=== PATIENT | female | born 1960 | race Caucasian/White ===

== ENCOUNTER 2017-03-04 18:28 | Emergency (ER) | payer BC, OTHER ==
[~2017-03-04] VITALS: Ht 165.1 cm; Wt 100.4 kg
[2017-03-04 18:29] VITALS: BP 122/80
== END 2017-03-04 18:38 | disposition home or self-care (01) ==
LOC: ED 18:32
DX: J03.00 Acute streptococcal tonsillitis, unspecified (principal)
CPT/HCPCS: 99283

== ENCOUNTER 2017-03-06 08:48 | Inpatient (IN) | payer BC ==
[~2017-03-06] VITALS: Ht 165.1 cm; Wt 109.8 kg
[2017-03-06] MEDS ORDERED: DEXAMETHASONE 4 MG/ML, 5ML ONE (09:21)
[2017-03-06] MEDS ORDERED: DEXAMETHASONE 4 MG/ML, 1ML PO ONE (09:30)
[2017-03-06] MEDS ORDERED: CEFTRIAXONE PMX 1GM/50ML 50 ML IV ONE (10:00)
[2017-03-06] MEDS ORDERED: BENZOCAINE 20% SPRAY 0.5ML ONE (10:01)
[2017-03-06] MEDS ORDERED: CEFTRIAXONE PMX 1GM/50ML 50 ML ONE (10:13)
[2017-03-06 10:20] LABS: HEMOGLOBIN 12.6 g/dL (11.7-16.4)
[2017-03-06 10:29] LABS: BLOOD UREA NITROGEN 13 mg/dL (7-18)
[2017-03-06] MEDS ORDERED: SODIUM CHLORIDE 0.9% 1,000ML IVBOLUS ONE (10:30)
[2017-03-06 10:31] LABS: ASPARTATE AMINO TRANSFERASE 15 U/L (15-37)
[2017-03-06] MEDS ORDERED: SODIUM CHLORIDE 0.9% 1,000 ML IV ONE (10:52)
[2017-03-06] MEDS ORDERED: POLYETHYLENE GLYCOL 17 GM PACKET PO PRN (11:00)
[2017-03-06] MEDS ORDERED: ONDANSETRON 2MG/ML, 2ML IVP PRN (11:00)
[2017-03-06] MEDS ORDERED: TEMAZEPAM 15 MG CAPSULE PO PRN (11:00)
[2017-03-06] MEDS ORDERED: LABETALOL 5MG/ML, 20ML IV PRN (11:00)
[2017-03-06] MEDS ORDERED: ACETAMINOPHEN 325 MG TABLET PO PRN (11:00)
[2017-03-06] MEDS ORDERED: MORPHINE SULFATE 4 MG/ML, 1ML ONE ×2 (11:09→13:00)
[2017-03-06] MEDS ORDERED: ENOXAPARIN 40 MG/0.4 ML ONE (11:10)
[2017-03-06] MEDS: ENOXAPARIN 40 MG/0.4 ML SQ SCH (11:12)
[2017-03-06] MEDS: MORPHINE SULFATE 4 MG/ML, 1ML IVPush PRN ×5 (11:12→23:22)
[2017-03-06] MEDS: AMPICILLIN/SULBACTAM 3 GM in SODIUM CHLORIDE 0.9% 100 ML IV SCH ×3 (11:30→22:50)
[2017-03-06] MEDS ORDERED: SODIUM CHLORIDE FLUSH 10ML SYR IVF ONE (12:00)
[2017-03-06] MEDS: DEXAMETHASONE 4 MG/ML, 1ML IVPush SCH ×3 (12:01→22:50)
[2017-03-06] MEDS: SODIUM CHLORIDE 0.9% 1,000 ML IV SCH (14:15)
[2017-03-06 16:48] VITALS: BP 145/85
[2017-03-06] MEDS: SODIUM CHLORIDE FLUSH 10ML SYR IVF SCH (20:28)
[2017-03-06] MEDS ORDERED: OMNIPAQUE 350 MG/ML, 100ML BOTTLE ONE (22:17)
[2017-03-07 03:00] VITALS: BP 140/74
[2017-03-07] MEDS: SODIUM CHLORIDE 0.9% 1,000 ML IV SCH ×3 (03:49→18:27)
[2017-03-07] MEDS: MORPHINE SULFATE 4 MG/ML, 1ML IVPush PRN (03:49)
[2017-03-07 04:27] LABS: HEMOGLOBIN 10.9 g/dL (11.7-16.4)
[2017-03-07 04:38] LABS: BLOOD UREA NITROGEN 18 mg/dL (7-18)
[2017-03-07 04:39] LABS: ASPARTATE AMINO TRANSFERASE 10 U/L (15-37)
[2017-03-07] MEDS: DEXAMETHASONE 4 MG/ML, 1ML IVPush SCH ×3 (05:06→19:27)
[2017-03-07] MEDS: AMPICILLIN/SULBACTAM 3 GM in SODIUM CHLORIDE 0.9% 100 ML IV SCH ×3 (05:07→19:27)
[2017-03-07] MEDS: PANTOPROZOLE 40MG TABLET PO SCH (08:29)
[2017-03-07] MEDS: OXYcodone IR 5MG TABLET PO PRN ×4 (08:29→21:16)
[2017-03-07] MEDS: ENOXAPARIN 40 MG/0.4 ML SQ SCH (08:41)
[2017-03-07] MEDS: SODIUM CHLORIDE FLUSH 10ML SYR IVF SCH ×2 (13:05→21:16)
[2017-03-07 13:11] VITALS: BP 130/77
[2017-03-07] MEDS: DOCUSATE 100 MG CAPSULE PO PRN (17:23)
[2017-03-07 20:40] VITALS: BP 120/77
[2017-03-08 00:54] VITALS: BP 143/83
[2017-03-08] MEDS: AMPICILLIN/SULBACTAM 3 GM in SODIUM CHLORIDE 0.9% 100 ML IV SCH ×4 (01:04→19:40)
[2017-03-08] MEDS: DEXAMETHASONE 4 MG/ML, 1ML IVPush SCH ×2 (01:04→06:27)
[2017-03-08 05:39] VITALS: BP 149/85
[2017-03-08] MEDS: OXYcodone IR 5MG TABLET PO PRN ×4 (05:48→21:35)
[2017-03-08] MEDS: SODIUM CHLORIDE 0.9% 1,000 ML IV SCH (05:48)
[2017-03-08 07:37] VITALS: BP 149/83
[2017-03-08] MEDS: SODIUM CHLORIDE FLUSH 10ML SYR IVF SCH ×2 (09:11→21:00)
[2017-03-08] MEDS: PANTOPROZOLE 40MG TABLET PO SCH (09:11)
[2017-03-08] MEDS: ENOXAPARIN 40 MG/0.4 ML SQ SCH (09:11)
[2017-03-08] MEDS: DOCUSATE 100 MG CAPSULE PO PRN (11:00)
[2017-03-08 14:48] VITALS: BP 121/76
[2017-03-08 19:03] VITALS: BP 142/85
[2017-03-09] MEDS: AMPICILLIN/SULBACTAM 3 GM in SODIUM CHLORIDE 0.9% 100 ML IV SCH ×4 (00:56→20:59)
[2017-03-09 01:14] VITALS: BP 143/83
[2017-03-09 08:18] VITALS: BP 155/88
[2017-03-09] MEDS: SODIUM CHLORIDE FLUSH 10ML SYR IVF SCH ×2 (09:09→21:00)
[2017-03-09] MEDS: OXYcodone IR 5MG TABLET PO PRN ×2 (09:10→20:59)
[2017-03-09] MEDS: ENOXAPARIN 40 MG/0.4 ML SQ SCH (12:13)
[2017-03-09] MEDS ORDERED: AMOX1TAB61 PO (13:02)
[2017-03-09] MEDS ORDERED: ACID1TAB3 PO (13:02)
[2017-03-09 14:05] VITALS: BP 134/85
[2017-03-09 19:18] VITALS: BP 134/84
[2017-03-10 03:11] VITALS: BP 155/91
[2017-03-10] MEDS: AMPICILLIN/SULBACTAM 3 GM in SODIUM CHLORIDE 0.9% 100 ML IV SCH ×3 (03:13→15:40)
[2017-03-10 07:17] VITALS: BP 160/89
[2017-03-10] MEDS: OXYcodone IR 5MG TABLET PO PRN (09:28)
[2017-03-10] MEDS: SODIUM CHLORIDE FLUSH 10ML SYR IVF SCH (09:28)
[2017-03-10] MEDS: ENOXAPARIN 40 MG/0.4 ML SQ SCH (12:30)
[2017-03-10 13:31] VITALS: BP 123/79
[2017-03-10] MEDS ORDERED: TRAM50TA2 PO (16:19)
== END 2017-03-10 18:40 | disposition home or self-care (01) | DRG 153 ==
LOC: ED 09:37 → EDIP 10:52 → CCU 13:58 → ICU 03-07 11:19
PROVIDERS: ADMIT Internal Medicine; ATTEND Internal Medicine
DX: J36 Peritonsillar abscess (principal); Z68.41 Body mass index [BMI] 40.0-44.9, adult; E66.9 Obesity, unspecified; R01.1 Cardiac murmur, unspecified; J06.0 Acute laryngopharyngitis; Z83.3 Family history of diabetes mellitus; Z82.49 Family history of ischemic heart disease and other diseases of the circulatory system; Z98.84 Bariatric surgery status
CPT/HCPCS: 36415; 70360; 70491; 80053; 83605; 85025; 87040; 87081; 96361; 96365; J0295; J0696; J1100; J1650; Q9967; J7030

== ENCOUNTER 2021-03-29 09:07 | Emergency (ER) | payer BC, OTHER ==
[~2021-03-29] VITALS: Ht 165.1 cm; Wt 101.9 kg
[~2021-03-29 09:07] MED LIST: ACID1TAB3 PO; AMOX1TAB61 PO; TRAM50TA2 PO
--- NOTE | 2021-03-29 09:19 | NUR ---
PATIENT WALKED BACK FROM TRIAGE WITH CHIEF C/O CHEST PAIN SINCE 829 THIS MORNING. PER PATIENT PAIN RADIATES TO LEFT ARM AND TO LEFT UPPER BACK. PATIENT DENIES CARDIAC HX, STATES SHE DOES HAVE A HEART MURMUR. PATIENT DENIES SOB, STATES SHE FELT SLIGHTLY NAUSEATED BUT NO VOMITING. ANJUM, CONNECTED TO MONITOR, SPOUSE AT BEDSIDE, CALL LIGHT WITHIN REACH. Addendum: 03/29/21 at 0925 by RYAN PATIENT REPORTS SHE TOOK HEARTBURN MEDICATION AND PAIN SLIGHTLY SUBSIDED.
--- NOTE | 2021-03-29 09:25 | NUR ---
ERPA AT BEDSIDE FOR EVALUATION.
[2021-03-29] MEDS ORDERED: ASPIRIN 81 MG TABLET CHEW ONE (09:36)
[2021-03-29 09:48] LABS: BASOPHILS % (AUTO) 2 % (0-1); EOSINOPHILS % (AUTO) 2 % (1-7); LYMPHOCYTES % (AUTO) 31 % (22-44); MEAN CORPUSCULAR HEMOGLOBIN 26.1 pg (27.0-34.8); MEAN CORPUSCULAR HGB CONC 32.7 g/dL (32.4-35.8); MEAN PLATELET VOLUME 8.6 fL (7.4-10.4); MONOCYTES % (AUTO) 8 % (2-9); NEUTROPHILS % (AUTO) 57 % (42-75); PLATELET COUNT 223 x10^3/uL (130-400); RED BLOOD COUNT 4.89 x10^6/uL (3.82-5.3); RED CELL DISTRIBUTION WIDTH 16.1 % (9.6-15.2)
[2021-03-29 09:49] LABS: MD NO
[2021-03-29 09:59] LABS: ALANINE AMINOTRANSFERASE 36 U/L (12-78); ALBUMIN 3.8 g/dL (3.4-5.0); ANION GAP 4 mmol/L (5-15); CALCIUM 9.2 mg/dL (8.5-10.1); CHLORIDE 108 mmol/L (98-107); CREATININE 1.04 mg/dL (0.55-1.02)
[2021-03-29] MEDS ORDERED: ASPIRIN 81 MG TABLET CHEW PO ONE (10:00)
[2021-03-29 10:03] LABS: BILIRUBIN,TOTAL 0.3 mg/dL (0.2-1.0); TOTAL PROTEIN 7.3 g/dL (6.4-8.2); TROPONIN I 0.024 ng/mL (0.000-0.045)
[2021-03-29 10:04] LABS: ALKALINE PHOSPHATASE 118 U/L (45-117)
--- NOTE | 2021-03-29 11:04 | NUR ---
PATIENT SITTING IN GURNEY ON TABLET, NADN, VSS, SPOUSE AT BEDSIDE, CALL LIGHT WITHIN REACH. PATIENT UP FOR RECHECK.
--- NOTE | 2021-03-29 12:12 | NUR ---
PATIENT SITTING IN GURW[place]ERNIE ON PHONE, [place], PATIENT DENIES ANY CHEST PAIN AT THIS TIME, CALL LIGHT WITHIN REACH. WAITING FOR REPEAT 1230 TROPONIN.
--- NOTE | 2021-03-29 12:37 | NUR ---
OPERATIONS LEAD AT BEDSIDE.
[2021-03-29 13:01] LABS: TROPONIN I < 0.015 ng/mL (0.000-0.045)
[2021-03-29 13:19] VITALS: BP 137/84
--- NOTE | 2021-03-29 13:28 | NUR ---
Patient given discharge instructions and they have confirmed that they understand the instructions. Patient stable and ambulatory with steady gait from ED to private vehicle with daughter.
== END 2021-03-29 13:29 | disposition home or self-care (01) ==
LOC: ED 10:08
DX: R07.89 Other chest pain (principal); R10.13 Epigastric pain
CPT/HCPCS: 36415; 71045; 80053; 83690; 84484; 85025; 93005; 99285